=== PATIENT | male | born 1955 | race Caucasian/White ===

== ENCOUNTER 2019-09-15 14:30 | Outpatient (CLI) | payer BC, SELFPAY ==
--- NOTE | ~2019-09-15 | CT_ITS ---
EXAMINATION: CT abdomen pelvis w con EXAM DATE: 09/15/2019 15:47 INDICATION: Prostate cancer restaging. TECHNIQUE: Spiral CT of the abdomen and pelvis was performed following intravenous injection of 100 m L Omnipaque 350. Axial, coronal and sagittal images were reviewed. The dose-length product (DLP) fo r this examination was 1272.21 mGy-cm. The exposure was tailored according to patient size (auto mA exposure control), and iterative reconstruction (ASIR) was used as additional dose reduction techniqu e. There is no prior study for comparison. FINDINGS: The largest liver cyst is in the central aspect, measures 4.8 cm. The spleen, pancreas, an d adrenal glands are unremarkable. Gallbladder is unremarkable. No biliary obstruction. Portal and splenic veins are patent. Kidneys enhance symmetrically. There is no hydronephrosis. Small umbilic al fat-containing hernia. Small bilateral inguinal fat-containing hernias. There is mild prostatomega ly. The bladder is unremarkable. There is no retroperitoneal or pelvic lymphadenopathy. The appendix is not positively visualized. There is no pericecal inflammatory change to suggest appe ndicitis. There is mild scattered colonic diverticulosis. There is no adjacent inflammatory change t o suggest diverticulitis. The stomach and small bowel are unremarkable. There is expected amount of colonic stool. No free intraperitoneal gas. The heart is normal in size. There are no pericardia l or pleural effusions. Linear bibasilar atelectasis. There are no osteoblastic or osteolytic lesio ns identified. IMPRESSION: 1. Mild prostatomegaly. No evidence of metastatic disease. 2. Small fat-containing hernias. 3. Mild colonic diverticulosis. Reviewed, dictated and finalized at location A.
[2019-09-15 15:46] LABS: Estimated Glomerular Filt Rate 56
== END 2019-09-15 14:31 | disposition home or self-care (01) ==
PROVIDERS: Visit Provider Urology
DX: C61 Malignant neoplasm of prostate (principal); K57.30 Diverticulosis of large intestine without perforation or abscess without bleeding; K44.9 Diaphragmatic hernia without obstruction or gangrene; N40.0 Benign prostatic hyperplasia without lower urinary tract symptoms
CPT/HCPCS: 36415; 74177; Q9967

== ENCOUNTER 2019-10-11 14:05 | Outpatient (CLI) | payer BC, SELFPAY ==
--- NOTE | 2019-10-11 14:52 | ECG_ITS ---
Measurements Intervals [place] Rate: 76 P: 49 HI: 177 QRS: -4 QRSD: 90 T: 31 QT: 365 QTc: 411 Interpretive Statements SINUS RHYTHM WITH SINUS ARRHYTHMIA BORDERLINE R WAVE PROGRESSION, ANTERIOR LEADS CONSIDER INFERIOR INFARCT, AGE INDETERMINATE ABNORMAL ECG Electronically Signed On 10-11-2019 16:09:01 CDT by Arsen Bautista D.O.
[2019-10-11 15:18] LABS: Basophils Absolute Auto 0.1 K/mm3 (0.0-0.1); Basophils Percent Auto 0.6 % (0.2-1.2); Eosinophils Absolute Auto 0.1 K/mm3 (0-0.3); Eosinophils Percent Auto 1.5 % (0-4.4); Hematocrit 59.3 % (42.0-52.0); Hemoglobin 19.1 g/dL (14.0-18.0); Immature Granulocyte Absolute 0.06 K/mm3 (0.00-0.031); Immature Granulocyte Percent A 0.7 % (0-0.5); Lymphocytes Absolute Auto 2.29 K/mm3 (0.9-3.2); Mean Corpuscular HGB Conc 32.2 g/dl (32-36); Mean Corpuscular Hemoglobin 28.6 pg (26-34); Mean Corpuscular Volume 88.6 fl (80-100); Mean Platelet Volume 11.1 fl (7.4-10.4); Monocytes Absolute Auto 0.6 K/mm3 (0.1-0.6); Monocytes Percent Auto 7.1 % (2.6-8.5); Neutrophils Absolute Auto 5.4 K/mm3 (1.3-6.7); Neutrophils Percent Auto 63.1 % (45.5-73.1); Platelet Count Result 211 k/mm3 (150-375); Red Blood Count 6.69 M/mm3 (4.6-6.20); Red Cell Distribution Width 14.7 % (11.5-14.5); White Blood Count 8.5 K/mm3 (4.5-10.0)
[2019-10-11 15:27] LABS: Prothrombin Time 12.5 Seconds (11.1-14.7)
[2019-10-11 15:28] LABS: Alanine Aminotransferase 22 U/L (4-50); Albumin Level 4.8 g/dL (3.5-5.1); Alkaline Phosphatase 75 U/L (38-126); Aspartate Amino Transferase 26 U/L (17-59); Bilirubin,Total 0.7 mg/dL (0.2-1.3); Blood Urea Nitrogen 15 mg/dL (9-20); Calcium 9.5 mg/dL (8.4-10.2); Carbon Dioxide 29 mmol/L (22-30); Chloride 105 mmol/L (98-107); Estimated Glomerular Filt Rate 56; Glucose 104 mg/dL (75-110); Potassium 4.1 mmol/L (3.4-5.0); Sodium 143 mmol/L (137-145)
[2019-10-11 15:28] LABS: Partial Thromboplastin Time 24.1 SECONDS (22.3-36.8)
== END 2019-10-11 14:06 | disposition home or self-care (01) ==
LOC: ANHSURGERY 14:09
PROVIDERS: PCP Pediatrics; Visit Provider Urology
DX: Z01.818 Encounter for other preprocedural examination (principal); C61 Malignant neoplasm of prostate; R94.31 Abnormal electrocardiogram [ECG] [EKG]
CPT/HCPCS: 36415; 80053; 85025; 85610; 85730; 86850; 86900; 86901; 87086; 93005

== ENCOUNTER 2019-10-16 04:33 | Outpatient (CLI) | payer BC, SELFPAY ==
[2019-10-16 18:08] LABS: SARS-CoV-2 RNA PCR Negative
== END 2019-10-16 04:34 | disposition home or self-care (01) ==
LOC: ANHCOVIDDT 04:33
PROVIDERS: Visit Provider Urology
DX: Z01.812 Encounter for preprocedural laboratory examination (principal); Z11.59 Encounter for screening for other viral diseases
CPT/HCPCS: 87635; C9803; U0003

== ENCOUNTER 2019-10-19 00:45 | Day surgery (SDC) | payer BC, SELFPAY ==
[2019-10-11 14:21] VITALS: BP 156/94; PULSE 90; RESP 20; TEMP 36.9; O2SAT 95
[2019-10-11 14:56] VITALS: BMI 33.0
[2019-10-19] VITALS (11 sets, daily range): BP systolic 102–174; BP diastolic 61–104; PULSE 80–93; RESP 12–22; TEMP 36.6–37.5; O2SAT 91–98
[2019-10-19] MEDS: LACTATED RINGERS 1,000 ML 30 ML IV CONT ×2 (06:50→11:54)
--- NOTE | 2019-10-19 07:02 | WPDHPUPDATE1 ---
History and Physical Update Update Date/Time: 10/19/19 07:02 History and Physical has been reviewed, including an updated exam of the patient. There are NO changes in the patient's condition. Risks, benefits, and alternatives have been discussed and questions answered. Patient agrees to proceed with procedure.
--- NOTE | 2019-10-19 07:04 | P.PNAN_ITS ---
Anes - Initial Pre Proc Eval Procedure: Operation Date: 10/19/19 07:30 Proposed Procedures p Robotic Assisted Prostatectomy, Nerve Sparing, Possible Pelvic Lymph Node Dissection - Enrique Parker MD Date/Time: 10/19/19 07:04 Surgeon: Enrique Parker MD Pre Op Diagnosis: prostate CA Patient Data Age: 64 Gender: M Height: 6 ft Weight: 110.7 kg Last Vital Signs Temp 98.4 F 10/11/19 14:21 Pulse 90 10/11/19 14:21 Resp 20 10/11/19 14:21 BP 156/94 H 10/11/19 14:21 Pulse Ox 95 10/11/19 14:21 Allergies Allergy/AdvReac Type Severity Reaction Status Date / Time No Known Allergies Allergy Unverified 11/16/18 07:56 Home Medications Medication Instructions Recorded Confirmed Type aspirin 81 mg PO DAILY 10/11/19 10/11/19 History cholecalciferol (vitamin D3) 25 mcg PO DAILY 10/11/19 10/11/19 History dutasteride 0.5 mg PO HS 10/11/19 10/11/19 History omeprazole 40 mg PO DAILY 10/11/19 10/11/19 History Patient hx anesthesia problems: none Family hx anesthesia problems: none [facility] Past Medical History Medical History (Updated 10/19/19 @ 07:04 by Stanley Menard MD) GERD (gastroesophageal reflux disease) Polycythemia Prostate cancer Social History Social History Smoking status: Never smoker Alcohol intake: never Anes - Eval Final PreProcedure Day of Procedure 10/19/19 07:04 Patient weight: overweight Heart: regular rate and rhythm Lungs: clear to auscultation Airway: Mallampati scale class III Neurological: alert and oriented Last oral intake: >/= 8 hours ASA classification: III Emergent: no Anesthetic plan: proceed Anesthesia type and monitoring: general ETT and standard monitoring Informed Consent: The patient's anesthetic plan and its attendant risks and benefits were discussed with the patient/family/POA. Questions were solicited and answers provided to the satisfaction of the patient/family/POA.
[2019-10-19] MEDS: ceFAZolin 2 GM/D5W 50 ML 2 GM/50 ML BAG IVPB (07:26)
[2019-10-19] MEDS: ceFAZolin SODIUM 1 GM VIAL IV PUSH (11:26)
--- NOTE | 2019-10-19 11:43 | PM.OP ---
Procedure Note - Brief Procedure Note - Brief Date of procedure: 10/19/19 Pre-op diagnosis: prostate CA Post-op diagnosis: same Procedure performed: Robotic assisted nerve-sparing prostatectomy Description of procedure: Procedure dictated Anesthesia: GETA Surgeon: Enrique Parker MD Estimated blood loss (mL): 200 Drains: Yes Packing: No Pathology: yes Complications: No immediate complications Condition: stable Disposition: PACU
[2019-10-19] MEDS: LACTATED RINGERS 1,000 ML 125 ML IV CONT ×2 (13:47→21:27)
[2019-10-19] MEDS: KETOROLAC 30 MG/ML VIAL (*BKC) IV PUSH (14:12)
--- NOTE | 2019-10-19 17:16 | OP_ITS ---
DATE OF PROCEDURE: 10/19/2019 PREOPERATIVE DIAGNOSIS: Adenocarcinoma of the prostate. POSTOPERATIVE DIAGNOSIS: Adenocarcinoma of the prostate. PROCEDURE PERFORMED: Robotic assisted nerve-sparing prostatectomy. COMPLICATIONS: None. ANESTHESIA: General with local. BLOOD LOSS: 200 cc. DESCRIPTION OF PROCEDURE: The patient was taken to the operative suite and correctly identified. Once anesthesia was obtained, he was placed in a low-lying dorsal lithotomy position, prepped and draped in usual sterile fashion. A 16-Mauritanian Lawson catheter was placed with 20 cc in the balloon. A supraumbilical incision was made, carried down to the rectus fascia. We placed a Veress needle, but I was not confident that it was intraperitoneal. As such, we did a cutdown and placed a Amador maneuver. The camera port was secured and the camera was placed in the abdomen after it was insufflated to 15 mmHg pressure. Working ports were placed in their appropriate locations. The patient was placed in a steep Trendelenburg position and the robot was docked. Attention was then given to the console. We took down some adhesions along the left colon. We did a posterior approach and dissected the seminal vesicles in their entirety. The ampulla and the vas were transected. The space between the rectum and the prostate was developed. We then took down the bladder in the standard fashion. A space of Retzius was developed bilaterally. Puboprostatic ligaments were transected. Dorsal venous complex was isolated using a 0 Vicryl and then secured to the pubic bone. The bladder neck was then incised. We did a bladder neck sparing procedure. Posterior Denonvilliers' was then transected to expose the previously dissected seminal vesicles and vas. Bilateral nerve-sparing was done in standard fashion after we took down the pedicles with clips. Dorsal venous complex was then transected. The urethra was also transected. Specimen was placed in EndoCatch bag. There was good hemostasis. Given that he only has a Tatum 6, we forewent the pelvic lymph node dissection. We then reapproximated Denonvilliers' using 0 Vicryl. The bladder neck was then reapproximated to the urethral stump using a V-Loc suture in a running fashion. There was good mucosa to mucosa approximation. It appeared watertight. A 16-Mauritanian Lawson was then placed with 12 cc in the balloon. We inflated the bladder with 120 cc. There was no evidence of extravasation. All lap count, needle count, and sponge counts were correct at this point. Serg drain was placed through the 3rd arm port site and secured. The patient was undocked. The specimen was brought out through the midline incision. Rectus fascia was closed using 0 Vicryl in a running fashion. Subcuticular stitches were then placed. The patient was taken recovery in stable condition. Leticia I MT: Marely
[2019-10-20 02:54] VITALS: BP 143/74; PULSE 70; RESP 18; TEMP 36.8; O2SAT 91
[2019-10-20 06:00] VITALS: BP 153/86; PULSE 70; RESP 20; TEMP 36.8; O2SAT 91
[2019-10-20 06:14] LABS: Hematocrit 46.5 % (42.0-52.0); Hemoglobin 15.3 g/dL (14.0-18.0)
[2019-10-20] MEDS: LACTATED RINGERS 1,000 ML 125 ML IV CONT (06:15)
[2019-10-20 06:28] LABS: Blood Urea Nitrogen 22 mg/dL (9-20); Calcium 8.3 mg/dL (8.4-10.2); Carbon Dioxide 26 mmol/L (22-30); Chloride 104 mmol/L (98-107); Estimated CRCL calculation 47 ml/min; Estimated Glomerular Filt Rate 36; Glucose 98 mg/dL (75-110); Potassium 4.2 mmol/L (3.4-5.0); Sodium 133 mmol/L (137-145)
[2019-10-20] MEDS: PANTOPRAZOLE 40 MG TABLET PO (09:58)
--- NOTE | 2019-10-20 13:19 | WPDUROPN2 ---
Progress Note: A&P Assessment and Plan (1) Prostate cancer: Code(s): C61 - Malignant neoplasm of prostate Status: Acute Assessment and Plan: Ok to discharge home with Mccallum and STEFAN drain. Keep a diary of his 24 hour totals of STEFAN drain, plan to remove on Friday in the office. Will keep mccallum in until Cystogram appointment, then remove after in office if no complications. Otherwise pain is minimal he is doing well and wants to go home. Subjective Subjective Date/Time Seen: 10/20/19 13:19 POD #1 Robotic Assisted Nerve Sparing Prostatectomy Review of Systems Respiratory: Respiratory: Reports no additional respiratory complaints Gastrointestinal: Gastrointestinal: Reports no additional gastrointestinal complaints, Reports abdominal pain (at incision sites only), Denies nausea and Denies vomiting Genitourinary: Genitourinary: Denies hematuria Exam Resp: Effort & Inspection: normal respiratory effort Cardio: Rate: regular rate GI: GI Palp: Yes abdominal tenderness (at incision sites, no drainage or edema present, all are well approximated), Yes Soft to palpation and Yes Tenderness to palpation present (GI) (STEFAN drain draining to gravity, 200cc of bloody drainage today for output) Urinary Catheter: Urinary Catheter: patent and draining and urine clear Extrem: General: no edema Objective Data Vital Signs Vital Signs: Vital Signs - 24 hr 10/19/19 13:24 10/19/19 13:54 10/19/19 15:02 Temperature 97.8 F 97.9 F Pulse Rate 83 82 88 Respiratory Rate 16 16 18 Blood Pressure 155/73 H 174/83 H Pulse Oximetry 94 94 93 10/19/19 22:54 10/20/19 02:54 10/20/19 06:00 Temperature 99.5 F 98.3 F 98.2 F Pulse Rate 84 70 70 Respiratory Rate 16 18 20 Blood Pressure 122/73 143/74 H 153/86 H Pulse Oximetry 91 91 91 Intake/Output Intake/Output: Intake & Output 10/17/19 10/18/19 10/19/19 10/20/19 23:59 23:59 23:59 23:59 Intake Total 1650 1660 Output Total 160 550 Balance 1490 1110 Meds/Results Medications: Active Medications Generic Name Dose Route Start Last Admin Trade Name Freq PRN Reason Stop Dose Admin Hydrocodone Bitart/Acetaminophen 1 tab 10/19/19 13:09 10/19/19 21:27 Toxey 5-325 Mg PO 1 tab Q6H PRN Administration Pain Rated 1-3 Hydrocodone Bitart/Acetaminophen 2 tab 10/19/19 13:09 10/20/19 10:00 Toxey 5-325 Mg PO 2 tab Q6H PRN Administration Pain Rated 4-6 Hyoscyamine 0.125 mg 10/19/19 13:09 Levsin Tablet SUBLINGUAL Q4H PRN Bladder Spasm Lactated Ringer's 1,000 mls @ 125 mls/hr 10/19/19 13:09 10/20/19 06:15 Lr - Lactated Ringers Iv IV CONT 125 mls/hr .Q8H THOMAS Administration Levofloxacin 500 mg 10/20/19 09:00 10/20/19 09:58 Levaquin Tab PO 500 mg DAILY THOMAS Administration Morphine Sulfate 1 - 2 mg 10/19/19 13:50 Morphine Sulfate Inj IV PUSH Q2H PRN Pain Rated 7-10 Naloxone HCl 0.1 mg 10/19/19 13:09 Narcan IV PUSH Q2M PRN Opiate Reversal Pantoprazole Sodium 40 mg 10/19/19 21:00 10/20/19 09:58 Protonix PO 40 mg Q12HR THOMAS Administration Labs Labs: Laboratory Results - last 24 hr 10/20/19 10/20/19 05:50 05:50 Hgb 15.3 D Hct 46.5 Sodium 133 L Potassium 4.2 Chloride 104 Carbon Dioxide 26 BUN 22 H Creatinine 1.90 H Estim Creat Clear Calc 47 Estimated GFR 36 L Glucose 98 Calcium 8.3 L
[2019-10-20 14:00] VITALS: BP 159/80; PULSE 94; RESP 16; TEMP 36.8; O2SAT 92
--- NOTE | 2019-10-20 17:33 | DS_ITS ---
DATE OF DISCHARGE: 10/20/2019 The patient underwent robotic assisted nerve-sparing prostatectomy on October [address] Enrique Parker. PREOPERATIVE DIAGNOSIS: Adenocarcinoma of the prostate. POSTOPERATIVE DIAGNOSIS: Adenocarcinoma of the prostate. The patient is doing well postoperatively. Okay to discharge home today on a regular diet. ACTIVITY: As tolerated. The patient will resume all home medications except aspirin and hold that until next week. He will also go home with hydrocodone-acetaminophen as well as Levaquin 500 mg daily to prevent postop infection. Activity as tolerated. The patient will follow up on October 27 for cystogram and Lawson catheter removal as well as Friday, October 24 for Juan-Kruse drain removal. D I MT: Marely
== END 2019-10-20 15:10 | disposition home or self-care (01) ==
LOC: ANHSURGERY 05:55 → ANH3MEDSUR 13:16
PROVIDERS: Visit Provider Urology
PROC: 0VT04ZZ Resection of Prostate, Percutaneous Endoscopic Approach (ICD-10-PCS; CPT 55867; principal; 2019-10-19 07:30)
DX: C61 Malignant neoplasm of prostate (principal); K21.9 Gastro-esophageal reflux disease without esophagitis; Z79.82 Long term (current) use of aspirin
CPT/HCPCS: 55866; S2900; 36415; 80048; 85014; 85018; 88307; 88309; A9270; J0690; J1100; J1885; J2250; J2405; J2704; J2710; J3010; J7030; J7120; Q9968

== ENCOUNTER 2019-10-28 12:56 | Outpatient (CLI) | payer BC, SELFPAY ==
--- NOTE | ~2019-10-28 | XR_ITS ---
EXAMINATION: CYSTOGRAM DATE: 10/28/2019 13:41 INDICATION: Prostate cancer TECHNIQUE: Initial rib sawyer radiograph of the pelvis was performed. There was retrograde administration of Omnipaque 350 mixed with saline contrast into patient's existing mccallum catheter. Fluoroscopic avila ges of the pelvis were obtained during bladder filling and emptying. Fluoroscopy exposure time was 0. 4 minutes. FINDINGS: Couple phleboliths in the pelvis on the rib sawyer radiograph. Retrograde contrast. Desiccation of the jay jay dder demonstrates normal contour with no filling defects or urothelial irregularities. No evident jay jay dder leak. IMPRESSION: 1. No bladder leak. Reviewed, dictated and finalized at location A. IMPRESSION: 1. No bladder leak.
== END 2019-10-28 12:57 | disposition home or self-care (01) ==
PROVIDERS: Visit Provider Urology
DX: C61 Malignant neoplasm of prostate (principal)
CPT/HCPCS: 51600; 74430; Q9967